=== PATIENT | female | born 1945 | race Caucasian/White ===

== ENCOUNTER 2017-04-08 11:49 | Day surgery (SDC) | payer MEDICARE ==
[~2017-04-08] VITALS: Ht 160 cm; Wt 64.9 kg
[~2017-04-08 11:49] MED LIST: ALENDRONATE SOD70 MG PO; FISH OIL 1,0001 CA1 PO; PRAVACHOL40 MG PO
[2017-04-08 13:20] VITALS: BP 147/69; Ht 160 cm; Wt 64.9 kg
[2017-04-08 13:33] LABS: HEMATOCRIT 41.6 % (36.0-48.0); MCH 32.9 pg (26.0-34.0); MCHC 33.7 g/dL (31.0-37.0); MCV 97.9 fL (80.0-100.0); MEAN PLATELET VOLUME 10.2 fL (7.4-10.4); RBC 4.25 10x6/uL (4.00-5.40); RDW 12.2 % (11.5-14.5); WBC 8.1 10x3/uL (4.8-10.8)
[2017-04-08] MEDS ORDERED: HYDROCODONE-APA1 TAB PO (15:49)
--- NOTE | 2017-04-08 17:25 | NUR ---
PATIENT STANDS AND AMBULATES TO BATHROOM SLOWLY BUT WITHOUT DIFFICULTY. SPOUSE STANDING BY. PATIENT URINATES IN TOILET. LEFT HAND PIV DC'D WITH TIP INTACT. SPOUSE ASSISTING PATIENT TO DRESS
--- NOTE | 2017-04-08 17:45 | NUR ---
DISCHARGE INSTRUCTIONS REVIEWED WITH PATIENT AND SPOUSE. PATIENT FINISHING DRESSING IN PERSONAL CLOTHING. RIGHT WRIST DRESSING C/D/I. FINGERS WARM TO TOUCH, CAP REFILL < 3 SECONDS
--- NOTE | 2017-04-09 13:09 | OP ---
PATIENT NAME: SELAM BELL MEDICAL RECORD: [id number] :43 LOCATION:D.OPS ADMISSION DATE: SURGEON: SHARMAINE CHUN MD DATE OF OPERATION: 04/08/2017 PREOPERATIVE DIAGNOSIS: Displaced right distal radius fracture. POSTOPERATIVE DIAGNOSIS: Displaced right distal radius fracture. PROCEDURE: Open reduction internal fixation of displaced right distal radius fracture. SURGEON: Sharmaine Chun MD ANESTHESIA: General. INTRAOPERATIVE COMPLICATIONS: None. SUMMARY OF PATHOLOGIC FINDINGS: The patient had a primary loss of volar tilt with significant distal angulation apex volar. This was reduced nicely and was very amenable to volar plate fixation, Arthrex plate was used. OPERATIVE SUMMARY IN DETAIL: After obtaining the appropriate preoperative orthopedic surgery consent as well as anesthetic consultation, evaluation and clearance, the patient was brought to the operating room and placed on the operating table in supine position. After adequate general laryngeal mask airway was administered, tourniquet was placed about the proximal aspect of the right upper extremity. Right upper extremity was then prepped and draped in routine sterile fashion. The arm was elevated and exsanguinated, tourniquet inflated to 350 mmHg. Reduction maneuver was performed with traction countertraction. This was evaluated on fluoroscopy and found to be near anatomic. Volar approach of Basim was utilized taken into the palmar aspect for a formal carpal tunnel release. The flexor carpal radialis was identified and dissection was carried deep. Median nerve was identified and protected throughout the case. Dissection was carried deep to the periosteum, fracture was identified. A plate was then applied and serial compression and locking screws were utilized for fixation under direct fluoroscopic visualization. Having completed this, final radiographs were taken and submitted for radiologist review resulted in anatomic fixation and correction of the patient's volar tilt. Wound was copiously irrigated and closed with 2-0 Vicryl followed by 4-0 Prolene in running fashion. At this point, sterile dressings were applied. Tourniquet was deflated. The patient was awakened, taken to recovery room in stable condition. All final needle and sponge counts were correct. TRANSINT:[id number] Voice Confirmation ID: [id number] DOCUMENT ID: [id number] SHARMAINE CHUN MD at 1303 CC: [id number] DICTATION DATE: 04/08/171858 [facility] ADVISOR: 04/08/17 [id number] [facility] 04/08/17 [facility] [address] [place] [address]
== END 2017-04-08 17:58 | disposition home or self-care (01) ==
LOC: D.OPS 11:49 → D.PAN 14:30 → D.OPS 17:58
PROVIDERS: Anesthesiology
DX: S52.501A Unspecified fracture of the lower end of right radius, initial encounter for closed fracture (principal); J45.909 Unspecified asthma, uncomplicated; M25.531 Pain in right wrist; Z01.812 Encounter for preprocedural laboratory examination